=== PATIENT | female | born 1980 | race Caucasian/White ===

== ENCOUNTER 2016-09-30 15:15 | Observation (INO) | payer MEDICAID, SELFPAY ==
[2016-09-30 15:25] VITALS: BMI 36.0
--- NOTE | 2016-09-30 15:40 | PCM.HP.STD ---
Problem List (1) Opioid withdrawal Status: Acute (2) Depression Status: Chronic Qualifiers: Depression Type: D Major depression recurrence: M Active/Remission status: A Major depression episode severity: M Psychotic features: P Trimester: T (3) Tobacco abuse Status: Chronic (4) Tachycardia Status: Chronic (5) Asthma Status: Chronic Qualifiers: Asthma severity: A Asthma complication type: A (6) Irritable bowel syndrome Status: Chronic Qualifiers: Irritable bowel syndrome type: I History of Present Illness Date of Admission: 09/30/16 Chief Complaint: Sweating, diarrhea, body aches, opioid withdrawal for medical stabilization with [facility] service. The patient is a 36 year old F with past medical history as mentioned above including history of drug abuse presented to the [facility] service for symptoms of sweating, diarrhea and generalized body aches and pains. Her symptoms started early this morning with generalized body aches and pains, arthralgias, myalgias, dull aching pains, not radiating, 3-4 out of 10 in severity, associated with sweating and diarrhea as well as nausea and vomiting and without aggravating or relieving factors. She had a history of drug abuse and she used IV cocaine and heroin yesterday at 4 PM. At this time, she is experiencing significant withdrawal symptoms. Vital signs are stable. Patient was directly admitted to the floor, no blood work available. She is being admitted for medical stabilization from opioid withdrawal through [facility] service. Past Medical History Past Medical History (Chronic Problems): Chronic Problems Asthma (Chronic) Depression (Chronic) Irritable bowel syndrome (Chronic) Tachycardia (Chronic) Tobacco abuse (Chronic) Home Medications: Ambulatory Orders Medication Instructions Recorded Albuterol Inhaler [Ventolin Hfa] 2 puff PO PRN PRN 09/30/16 Atenolol [Tenormin] 100 mg PO DAILY 09/30/16 Buspirone HCl [Buspar] 15 mg PO 4X/DAY 09/30/16 Dicyclomine HCl [Bentyl] 10 mg PO TID 09/30/16 Gabapentin [Neurontin] 600 mg PO TIDCM 09/30/16 Meloxicam [Mobic] 15 mg PO DAILY 09/30/16 Oxybutynin Chloride [Ditropan Xl] 15 mg PO DAILY 09/30/16 Trazodone HCl 150 mg PO 09/30/16 Surgical History: appendectomy, cholecystectomy, tonsillectomy Psychiatric History: 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 Lives: With Family Smoking Status: Current every day smoker Alcohol: None Drugs: Cocaine, Heroin - *Family History Maternal History Items: No pertinent history Paternal History Items: Diabetes, Hypertension Review of Systems Constitutional: Denies: Anorexia, Chills, Fever, Weakness Eyes: Denies: Blurred vision, Double vision, Drainage, Redness HEENT: Denies: Difficulty Hearing, Ear Pain, Eye Pain, Nasal Congestion, Sore Throat Cardiovascular: Denies: Chest Pain, Chest Pressure, Edema, Heaviness, Palpitations, Syncope Respiratory: Denies: Cough, Pleuritic Pain, Shortness of Breath, Sputum production, Wheezing Gastrointestinal: Reports: Abdominal Pain, Diarrhea, Nausea, Vomiting. Denies: Constipation, Hematochezia, Melena Genitourinary: Denies: Dysuria, Frequency, Hematuria Musculoskeletal: Reports: Back Pain, Joint Pain, Leg Pain, Muscle pain Skin: Denies: Dryness, Rash Neurological: Reports: Headaches. Denies: Balance problems, Double vision, Change in Speech, Slurred speech, Confusion, Focal weakness, Incoordination, Numbness, Seizures Psychiatric: Reports: Depression. Denies: Anxiety Endocrine: Denies: Change in Body Habitus, Polydipsia VTE Information - Inpt Only VTE Present on Admission: No VTE Mechan Device Prophylaxis: None VTE Pharm Prophylaxis ordered?: No Patient Problems: Active and Suspected Problems Opioid withdrawal (Acute) - Physical Exam General: Alert, Oriented x3, Cooperative, - - She is sweaty, anxious. HEENT: Atraumatic, PERRLA, EOMI Oral: Moist Mucosa, No Gingival or Mucosal Lesions/ Ulcerations Neck: Supple, No JVD, Negative Carotid Bruits, Trachea Midline, Thyroid Normal Size and Texture Lungs: Clear to auscultation, Normal air movement, No rhonchi, No wheeze, No rales Cardiovascular: Regular rate, Regular Rhythm, Normal S1, Normal S2, PMI Normal, Tachycardic Abdomen: Bowel Sounds Present, Soft, Non Tender, Non-Distended, No Hepato-splenomegaly, Obese Extremities: No clubbing, No cyanosis, No edema Skin: No rashes, No breakdown Lymphatic: No Cervical, Supraclavicular, or Inguinal Adenopathy Neurological: Cranial nerves II-XII grossly intact, Motor Exam 5/5 strength throughout Psych/Mental Status: Normal Affect, Appropriate, Alert and oriented to time, place, person, mood and affect Assessment/Plan Active and Suspected Problems Opioid withdrawal (Acute) This is a 36 years old female patient admitted because of symptoms of generalized body aches, arthralgias, myalgias, diarrhea, sweating due to opioid withdrawal and last dose of cocaine and heroin was yesterday at 4 PM. #1 opioid withdrawal: At this time, vital signs are stable. Patient is sweaty, restless. [facility], cardiac monitoring, stat CBC, CMP, urinalysis, pro time and INR, test, urine drug screen, serum lipase and the malaise, IV fluids, IV antiemetics, start as needed medications as medical stabilization program by Sh[facility] Gonzalez, as needed Sinemet, Librium, Bentyl, Imodium, Seroquel, Vistaril and Tylenol, EKG, regular diet. #2 drug abuse: Patient uses heroin and cocaine, last dose was yesterday at 4 PM. She is experiencing significant withdrawal symptoms at this time. Plan as above for medical stabilization. #3 history of tachycardia: Unclear type of tachycardia, patient has been taking atenolol for low 12 years. At this time, heart rate is around 50s-60s. Blood pressure stable. Plan to continue atenolol. Monitor for bradycardia because she will be on atenolol as well as as needed clonidine for withdrawal symptoms. #4 depression: Hold trazodone for now, she would be on Seroquel. #5 irritable bowel syndrome: Postdilated because of withdrawal symptoms. Continue Bentyl and Librium #6 asthma: Patient is stable, maintaining O2 saturation normally on room air. Plan for albuterol as needed. #7 tobacco abuse: NicoDerm patch. #8 DVT prophylaxis: Low risk patient, no prophylaxis indicated. This note was generated with [employer] dictation software. It may contain incorrect words, spelling, and punctuation that were not noted in checking the note before signing.
--- NOTE | 2016-09-30 15:44 | HP.PCM_ITS ---
Problem List (1) Opioid withdrawal Status: Acute (2) Depression Status: Chronic Qualifiers: Depression Type: D Major depression recurrence: M Active/Remission status : A Major depression episode severity: M Psychotic features: P Trimester: T (3) Tobacco abuse Status: Chronic (4) Tachycardia Status: Chronic (5) Asthma Status: Chronic Qualifiers: Asthma severity: A Asthma complication type: A (6) Irritable bowel syndrome Status: Chronic Qualifiers: Irritable bowel syndrome type: I History of Present Illness Date of Admission: 09/30/16 Chief Complaint: Sweating, diarrhea, body aches, opioid withdrawal for medical stabilization with [facility] service. The patient is a 36 year old F with past medical history as mentioned above including history of drug abuse presented to the [facility] service for symptoms of sweating, diarrhea and generalized body aches and pains. Her symptoms started early this morning with generalized body aches and pains, arthralgias, myalgias, dull aching pains, not radiating, 3-4 out of 10 in severity, associated with sweating and diarrhea as well as nausea and vomiting and without aggravating or relieving factors. She had a history of drug abuse and she used IV cocaine and heroin yesterday at 4 PM. At this time, she is experiencing significant withdrawal symptoms. Vital signs are stable. Patient was directly admitted to the floor, no blood work available. She is being admitted for medical stabilization from opioid withdrawal through [facility] service. Past Medical History Past Medical History (Chronic Problems): Chronic Problems Asthma (Chronic) Depression (Chronic) Irritable bowel syndrome (Chronic) Tachycardia (Chronic) Tobacco abuse (Chronic) Home Medications: Ambulatory Orders Medication Instructions Recorded Albuterol Inhaler [Ventolin Hfa] 2 puff PO PRN PRN 09/30/16 Atenolol [Tenormin] 100 mg PO DAILY 09/30/16 Buspirone HCl [Buspar] 15 mg PO 4X/DAY 09/30/16 Dicyclomine HCl [Bentyl] 10 mg PO TID 09/30/16 Gabapentin [Neurontin] 600 mg PO TIDCM 09/30/16 Meloxicam [Mobic] 15 mg PO DAILY 09/30/16 Oxybutynin Chloride [Ditropan Xl] 15 mg PO DAILY 09/30/16 Trazodone HCl 150 mg PO 09/30/16 Surgical History: appendectomy, cholecystectomy, tonsillectomy Psychiatric History: Depression 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 Lives: With Family Smoking Status: Current every day smoker Alcohol: None Drugs: Cocaine, Heroin - *Family History Maternal History Items: No pertinent history Paternal History Items: Diabetes, Hypertension Review of Systems Constitutional: Denies: Anorexia, Chills, Fever, Weakness Eyes: Denies: Blurred vision, Double vision, Drainage, Redness HEENT: Denies: Difficulty Hearing, Ear Pain, Eye Pain, Nasal Congestion, Sore Throat Cardiovascular: Denies: Chest Pain, Chest Pressure, Edema, Heaviness, Palpitations, Syncope Respiratory: Denies: Cough, Pleuritic Pain, Shortness of Breath, Sputum production, Wheezing Gastrointestinal: Reports: Abdominal Pain, Diarrhea, Nausea, Vomiting. Denies: Constipation, Hematochezia, Melena Genitourinary: Denies: Dysuria, Frequency, Hematuria Musculoskeletal: Reports: Back Pain, Joint Pain, Leg Pain, Muscle pain Skin: Denies: Dryness, Rash Neurological: Reports: Headaches. Denies: Balance problems, Double vision, Change in Speech, Slurred speech, Confusion, Focal weakness, Incoordination, Numbness, Seizures Psychiatric: Reports: Depression. Denies: Anxiety Endocrine: Denies: Change in Body Habitus, Polydipsia VTE Information - Inpt Only VTE Present on Admission: No VTE Mechan Device Prophylaxis: None VTE Pharm Prophylaxis ordered?: No Patient Problems: Active and Suspected Problems Opioid withdrawal (Acute) - Physical Exam General: Alert, Oriented x3, Cooperative, - - She is sweaty, anxious. HEENT: Atraumatic, PERRLA, EOMI Oral: Moist Mucosa, No Gingival or Mucosal Lesions/ Ulcerations Neck: Supple, No JVD, Negative Carotid Bruits, Trachea Midline, Thyroid Normal Size and Texture Lungs: Clear to auscultation, Normal air movement, No rhonchi, No wheeze, No rales Cardiovascular: Regular rate, Regular Rhythm, Normal S1, Normal S2, PMI Normal, Tachycardic Abdomen: Bowel Sounds Present, Soft, Non Tender, Non-Distended, No Hepato- splenomegaly, Obese Extremities: No clubbing, No cyanosis, No edema Skin: No rashes, No breakdown Lymphatic: No Cervical, Supraclavicular, or Inguinal Adenopathy Neurological: Cranial nerves II-XII grossly intact, Motor Exam 5/5 strength throughout Psych/Mental Status: Normal Affect, Appropriate, Alert and oriented to time, place, person, mood and affect Assessment/Plan Active and Suspected Problems Opioid withdrawal (Acute) This is a 36 years old female patient admitted because of symptoms of generalized body aches, arthralgias, myalgias, diarrhea, sweating due to opioid withdrawal and last dose of cocaine and heroin was yesterday at 4 PM. #1 opioid withdrawal: At this time, vital signs are stable. Patient is sweaty, restless. [facility], cardiac monitoring, stat CBC, CMP, urinalysis, pro time and INR, test, urine drug screen, serum lipase and the malaise, IV fluids, IV antiemetics, start as needed medications as medical stabilization program by Sh[facility] Gonzalez, as needed Sinemet, Librium, Bentyl , Imodium, Seroquel, Vistaril and Tylenol, EKG, regular diet. #2 drug abuse: Patient uses heroin and cocaine, last dose was yesterday at 4 PM. She is experiencing significant withdrawal symptoms at this time. Plan as above for medical stabilization. #3 history of tachycardia: Unclear type of tachycardia, patient has been taking atenolol for low 12 years. At this time, heart rate is around 50s-60s. Blood pressure stable. Plan to continue atenolol. Monitor for bradycardia because she will be on atenolol as well as as needed clonidine for withdrawal symptoms. #4 depression: Hold trazodone for now, she would be on Seroquel. #5 irritable bowel syndrome: Postdilated because of withdrawal symptoms. Continue Bentyl and Librium #6 asthma: Patient is stable, maintaining O2 saturation normally on room air. Plan for albuterol as needed. #7 tobacco abuse: NicoDerm patch. #8 DVT prophylaxis: Low risk patient, no prophylaxis indicated. This note was generated with [employer] dictation software. It may contain incorrect words, spelling, and punctuation that were not noted in checking the note before signing.
--- NOTE | 2016-09-30 15:47 | EKG12_ITS ---
Test Reason : Blood Pressure : / mmHG Vent. Rate : 049 BPM Atrial Rate : 049 BPM P-R Int : 126 ms QRS Dur : 078 ms QT Int : 426 ms P-R-T Axes : 043 078 055 degrees QTc Int : 384 ms Marked sinus bradycardia with sinus arrhythmia Abnormal ECG No previous ECGs available Confirmed by JACINTO BARRERA ([id number]), senior technical editor CONRAD FLAHERTY ([id number] on 10/10/2016 3:24:24 PM Referred By: GEOVANNA Confirmed By:JACINTO BARRERA
[2016-09-30 15:51] VITALS: BP 112/55; PULSE 57; RESP 18; TEMP 37; O2SAT 97
[2016-09-30 15:54] VITALS: BP 112/55; PULSE 57; RESP 18; TEMP 37
[2016-09-30] MEDS: Buprenorphine HCl 2 MG TAB.SUBL SL (16:42)
[2016-09-30] MEDS: Carbidopa/Levodopa 25/100 Tablet PO (16:42)
[2016-09-30 16:58] LABS: Absolute Lymphocyte Count 1.48 X10^3/ul (0.83-4.51); Absolute Neutrophil Count 4.6 X10^3/uL (2.0-7.7); Basophil# 0.01 X10^3/uL; Basophil% 0.2 % (0-1); Eosinophil# 0.09 X10^3/uL; Eosinophils% 1.4 % (0-5); Hemoglobin 12.9 g/dl (12.0-15.0); Lymphocyte # 1.48 X10^3/ul (4.0); Lymphocyte % 22.7 % (19-41); Mean Corp Hgb Conc 31.5 g/gl (32-36); Mean Corpuscular Hgb 27.4 pg (27.0-32.0); Mean Corpuscular Volume 87.2 fL (81-99); Mean Platelet Vol. 11.6 fl (6.2-12.0); Monocyte# 0.34 X10^3/uL; Monocyte% 5.2 % (0-10); Neutrophil # 4.59 X10^3/uL (2.7-7.7); Neutrophil % 70.2 % (47-70); RBC Distribution Width CV 14.4 % (11.6-14.6); RBC Distribution Width SD 46.3 fl (35.1-43.9); White Blood Count 6.5 K/mm3 (4.4-11.0)
[2016-09-30 17:03] LABS: Prothrombin Time (Protime)PT. 12.4 SECONDS (11.7-14.9)
[2016-09-30 17:23] LABS: AST(SGOT) 35 U/L (15-37); Alanine Aminotransfer ALT/SGPT 56 U/L (12-78); Alcohol, Blood (Medical)-Serum < 3.0 mg/dL; Alkaline Phosphatase 111 U/L (45-117); Amylase 41 U/L (25-115); Anion Gap 8 (5-15); BUN 11 mg/dL (7-18); BUN/Creat Ratio 12.2 RATIO (10-20); Calcium,Total 9.2 mg/dL (8.5-10.1); Chloride 106 mmol/L (98-107); EST Glomerular Filtration Rate 74 mL/min (>60); Est Glom Filt Rate - Afr Amer 89 mL/min (>60); Estimated Creatinine Clearance 82.42 ml/min; Glucose 104 mg/dL (70-110); Lipase 212 U/L (73-393); Potassium 4.5 mmol/L (3.5-5.1); Sodium Level 142 mmol/L (136-145)
[2016-09-30 17:33] LABS: Differential Indicated SCAN CRITERIA MET; POSITIVE COUNT YES; POSITIVE DIFFERENTIAL NO; POSITIVE MORPHOLOGY NO; Platelet Count 200 K/mm3 (150-450)
[2016-09-30 17:34] LABS: Pregnancy, Serum, hCG Quali. NEGATIVE Negative (0-9 Nonpreg)
[2016-09-30 17:35] LABS: Red Cell Morphology NORM C+C NORMAL (NORM C&C)
[2016-09-30] MEDS: Gabapentin 600 MG Tablet PO (17:39)
[2016-09-30 17:40] LABS: Amphetamine Urine VISTA NEGATIVE (<1000 ng/mL); Barbiturate Urine VISTA NEGATIVE (< 200 ng/mL); Benzodiazepine Urine VISTA NEGATIVE (< 200 ng/mL); Cocaine Urine VISTA POSITIVE (< 300 ng/mL); Ecstacy Urine VISTA NEGATIVE (< 500 ng/mL); Methadone Urine VISTA NEGATIVE (< 300 ng/mL); PCP Urine VISTA NEGATIVE (< 25 ng/mL); THC Urine VISTA NEGATIVE (< 50 ng/mL); Vista UDS pH Range 8
[2016-09-30 19:59] VITALS: BP 124/93; PULSE 86; RESP 20; TEMP 36.8
[2016-09-30] MEDS: Ondansetron ODT 4 MG Tablet PO (20:20)
[2016-09-30 21:44] LABS: Bacteria 0 SEEN /hpf (None Seen); Mucous, Urine 0 SEEN /hpf (<or=2+); Red Blood Cells-Urine 0 SEEN /hpf (0-5); White Blood Cells 0 SEEN /hpf (0-5)
[2016-09-30 21:46] LABS: Color, Urine Straw (Yellow); Glucose, Dipstick Normal (Normal); Ketone-Dipstick Negative (Negative); Leukocyte Esterase-Dipstick Negative /ul (Negative); Nitrite-Dipstick Negative (Negative); Occult Blood-Urine Negative /ul (Negative); Protein-Dipstick Negative (Negative); Urine Bilirubin Dipstick Negative (Negative); Urine Clarity Clear (Clear); Urine Urobilinogen Normal (Normal)
[2016-09-30 21:56] LABS: Squamous Epithelial Cells - UA 0-5 SEEN /hpf (5-10)
[2016-10-01] VITALS (10 sets, daily range): BP systolic 101–119; BP diastolic 54–69; PULSE 61–81; RESP 16–20; TEMP 36.4–37.1; O2SAT 95–99
[2016-10-01] MEDS: Buprenorphine HCl 2 MG TAB.SUBL SL ×3 (00:15→16:34)
--- NOTE | 2016-10-01 06:49 | NURSING ---
Last night at 1999 Patient stated I need these heart things off me they are driving me crazy they are sticky and I can not sleep or get comfortable at all I explained to the patient the importance of the tele monitor and she said I will put it back on in the morning when I am awake I can't stand it on now So spoke with Dr. Myers and he was made aware. [id number] Patient was asked if we could put the tele monitor back on this morning and she said No not now I am still sleeping, maybe when I wake up.
[2016-10-01] MEDS: Gabapentin 600 MG Tablet PO ×3 (08:13→16:35)
[2016-10-01] MEDS: Tolterodine Tartrate 4 MG CAP.SA PO (08:14)
[2016-10-01] MEDS: Methocarbamol 750 MG Tablet PO (08:32)
--- NOTE | 2016-10-01 10:11 | PN_ITS ---
Patient Problems: Active and Suspected Problems Opioid withdrawal (Acute) Subjective: Chief complaint: Follow-up after admission for opioid withdrawal with for medical stabilization and detoxification. Patient seen and examined. No acute events overnight. She still complaining of generalized body aches and pains as well as sweating. Diarrhea improved, she still complaining of nausea without vomiting. Denied chest pain or shortness of breath. Vital signs are stable, she had bradycardia overnight because she has been on atenolol and added on clonidine as needed. Will - Physical Exam General: Alert, Oriented x3, Cooperative, No apparent distress HEENT: Atraumatic, PERRLA, EOMI Oral: Moist Mucosa, No Gingival or Mucosal Lesions/ Ulcerations Neck: Supple, No JVD, Negative Carotid Bruits, Thyroid Normal Size and Texture Lungs: Clear to auscultation, Normal air movement, No rhonchi, No wheeze, No rales Cardiovascular: Regular rate, Regular Rhythm, Normal S1, Normal S2, PMI Normal Abdomen: Bowel Sounds Present, Soft, Non Tender, Non-Distended, No Hepato- splenomegaly, Obese Extremities: No clubbing, No cyanosis, No edema Skin: No rashes, No breakdown Neurological: Neuro grossly intact Psych/Mental Status: Normal Affect, Appropriate Vital Signs Temp Pulse Resp BP Pulse Ox 98.8 F 74 18 114/66 97 10/01/16 08:00 10/01/16 08:00 10/01/16 08:00 10/01/16 08:00 09/30/16 15:51 Oxygen Delivery Method Room Air Weight: 230 lb Body Mass Index (BMI) 36.0 Intake and Output for Last 24 Hours 09/29/16 09/30/16 10/01/16 23:59 23:59 23:59 Intake Total 240 840 Balance 240 840 Laboratory Tests Past 24 Hrs 09/30/16 09/30/16 09/30/16 16:25 16:25 16:25 WBC 6.5 RBC 4.70 Hgb 12.9 Hct 41.0 MCV 87.2 MCH 27.4 MCHC 31.5 L RDW 14.4 RDW Differential 46.3 H Plt Count 200 MPV 11.6 Immature Gran % (Auto) 0.300 Neut % (Auto) 70.2 H Lymph % (Auto) 22.7 [place] % (Auto) 5.2 Eos % (Auto) 1.4 Baso % (Auto) 0.2 Absolute Neuts (auto) 4.6 Absolute Lymphs (auto) 1.48 Total Counted Not Reportable Platelet Estimate ADEQUATE SEE PLT NOT RBC Morphology NORM C+C PT INR Sodium 142 Potassium 4.5 Chloride 106 Carbon Dioxide 28.0 Anion Gap 8 BUN 11 Creatinine 0.90 Estim Creat Clear Calc 82.42 Est GFR (MDRD) Af Amer 89 Est GFR (MDRD) Non-Af 74 BUN/Creatinine Ratio 12.2 Glucose 104 Calcium 9.2 Total Bilirubin 0.40 AST 35 ALT 56 Alkaline Phosphatase 111 Total Protein 8.0 Albumin 4.0 Globulin 4.0 H Albumin/Globulin Ratio 1.0 Amylase 41 Lipase 212 Serum , Qual Urine Color Urine Clarity Urine pH Ur Specific [place] Urine Protein Urine Glucose (UA) Urine Ketones Urine Occult Blood Urine Nitrite Urine Bilirubin Urine Urobilinogen Ur Leukocyte Esterase Urine RBC Urine WBC Ur Squamous Epith Cells Urine Bacteria Urine Mucus Urine Opiates Screen Urine Methadone Screen Ur Barbiturates Screen Ur Phencyclidine Scrn Ur Amphetamines Screen U Methamphetamin-MDMA U Benzodiazepines Scrn Urine Cocaine Screen U Cannabinoids Screen Ur Drug Screen Comment Ethyl Alcohol < 3.0 09/30/16 09/30/16 09/30/16 16:25 16:25 16:35 WBC RBC Hgb Hct MCV MCH MCHC RDW RDW Differential Plt Count MPV Immature Gran % (Auto) Neut % (Auto) Lymph % (Auto) [place] % (Auto) Eos % (Auto) Baso % (Auto) Absolute Neuts (auto) Absolute Lymphs (auto) Total Counted Platelet Estimate RBC Morphology PT 12.4 INR 1.0 Sodium Potassium Chloride Carbon Dioxide Anion Gap BUN Creatinine Estim Creat Clear Calc Est GFR (MDRD) Af Amer Est GFR (MDRD) Non-Af BUN/Creatinine Ratio Glucose Calcium Total Bilirubin AST ALT Alkaline Phosphatase Total Protein Albumin Globulin Albumin/Globulin Ratio Amylase Lipase Serum , Qual NEGATIVE Urine Color Urine Clarity Urine pH Ur Specific [place] Urine Protein Urine Glucose (UA) Urine Ketones Urine Occult Blood Urine Nitrite Urine Bilirubin Urine Urobilinogen Ur Leukocyte Esterase Urine RBC Urine WBC Ur Squamous Epith Cells Urine Bacteria Urine Mucus Urine Opiates Screen POSITIVE H Urine Methadone Screen NEGATIVE Ur Barbiturates Screen NEGATIVE Ur Phencyclidine Scrn NEGATIVE Ur Amphetamines Screen NEGATIVE U Methamphetamin-MDMA NEGATIVE U Benzodiazepines Scrn NEGATIVE Urine Cocaine Screen POSITIVE H U Cannabinoids Screen NEGATIVE Ur Drug Screen Comment Ethyl Alcohol 09/30/16 16:35 WBC RBC Hgb Hct MCV MCH MCHC RDW RDW Differential Plt Count MPV Immature Gran % (Auto) Neut % (Auto) Lymph % (Auto) [place] % (Auto) Eos % (Auto) Baso % (Auto) Absolute Neuts (auto) Absolute Lymphs (auto) Total Counted Platelet Estimate RBC Morphology PT INR Sodium Potassium Chloride Carbon Dioxide Anion Gap BUN Creatinine Estim Creat Clear Calc Est GFR (MDRD) Af Amer Est GFR (MDRD) Non-Af BUN/Creatinine Ratio Glucose Calcium Total Bilirubin AST ALT Alkaline Phosphatase Total Protein Albumin Globulin Albumin/Globulin Ratio Amylase Lipase Serum , Qual Urine Color Straw Urine Clarity Clear Urine pH 8.0 Ur Specific [place] 1.010 Urine Protein Negative Urine Glucose (UA) Normal Urine Ketones Negative Urine Occult Blood Negative Urine Nitrite Negative Urine Bilirubin Negative Urine Urobilinogen Normal Ur Leukocyte Esterase Negative Urine RBC 0 SEEN Urine WBC 0 SEEN Ur Squamous Epith Cells 0-5 SEEN Urine Bacteria 0 SEEN Urine Mucus 0 SEEN Urine Opiates Screen Urine Methadone Screen Ur Barbiturates Screen Ur Phencyclidine Scrn Ur Amphetamines Screen U Methamphetamin-MDMA U Benzodiazepines Scrn Urine Cocaine Screen U Cannabinoids Screen Ur Drug Screen Comment Ethyl Alcohol Assessment/Plan Active and Suspected Problems Opioid withdrawal (Acute) This is a 36 years old female patient admitted because of symptoms of generalized body aches, arthralgias, myalgias, diarrhea, sweating due to opioid withdrawal and last dose of cocaine and heroin was yesterday at 4 PM. #1 opioid withdrawal: She is on medical stabilization protocol as per [facility] service with buprenorphine, Librium, Sinemet, clonidine and Seroquel as needed. Her vital signs are stable except bradycardia. She still complaining of generalized body aches and pains, nausea without vomiting as well as sweating , diarrhea improved. Routine blood work was reviewed, unremarkable. LFT and lipase were normal. Serum test was negative. Urinalysis was negative. EKG revealed sinus bradycardia, otherwise normal. Urine drug screen was positive for opioids and cocaine. Blood alcohol level is less than 3. Plan : Continue same treatment. #2 drug abuse: Patient uses heroin and cocaine. Urine drug screen is positive for opioids and cocaine. She is on medical stabilization program as above. #3 history of tachycardia: She is on atenolol. Heart rate went down to high 40s -50s. She has been on clonidine as needed. Plan to DC Claritin because of bradycardia. #4 depression: Trazodone held, she is on Seroquel as needed. Plan to resume BuSpar. #5 irritable bowel syndrome: Postdilated because of withdrawal symptoms. Continue Bentyl and Librium #6 asthma: Patient is stable, maintaining O2 saturation normally on room air. Plan for albuterol as needed. #7 tobacco abuse: NicoDerm patch. #8 DVT prophylaxis: Low risk patient, no prophylaxis indicated. This note was generated with [employer] dictation software. It may contain incorrect words, spelling, and punctuation that were not noted in checking the note before signing.
[2016-10-01] MEDS: Carbidopa/Levodopa 25/100 Tablet PO ×2 (12:34→21:18)
[2016-10-01] MEDS: Acetaminophen 325 MG Tablet 650 MG PO (16:40)
[2016-10-01] MEDS: Dicyclomine 10 MG Capsule 20 MG PO (16:41)
[2016-10-01] MEDS: BUSPIRONE HCL 15 MG TABLET PO ×2 (19:07→21:18)
[2016-10-01] MEDS: Loperamide 2 MG Capsule PO (21:18)
[2016-10-02] VITALS (7 sets, daily range): BP systolic 92–140; BP diastolic 51–88; PULSE 69–128; RESP 16–18; TEMP 36.6–36.9; O2SAT 95–96
[2016-10-02] MEDS: Buprenorphine HCl 2 MG TAB.SUBL SL ×2 (01:24→09:18)
[2016-10-02] MEDS: BUSPIRONE HCL 15 MG TABLET PO ×2 (08:56→12:51)
[2016-10-02] MEDS: Gabapentin 600 MG Tablet PO ×2 (08:56→12:51)
[2016-10-02] MEDS: Tolterodine Tartrate 4 MG CAP.SA PO (08:57)
[2016-10-02] MEDS: Carbidopa/Levodopa 25/100 Tablet PO (09:07)
--- NOTE | 2016-10-02 09:35 | PCM.PROGNOTE ---
Patient Problems: Active and Suspected Problems Opioid withdrawal (Acute) Subjective: Chief complaint: Follow-up after admission for opioid withdrawal was for medical stabilization with [facility] service. Patient seen and examined. No acute events overnight. Today, she is feeling much better. She has no more sweating, but the aches or myalgias. Denies any more nausea vomiting. No more diarrhea. Vital signs are stable. - Physical Exam General: Alert, Oriented x3, Cooperative, No apparent distress HEENT: Atraumatic, PERRLA, EOMI Oral: Moist Mucosa, No Gingival or Mucosal Lesions/ Ulcerations Neck: Supple, No JVD, Negative Carotid Bruits, Trachea Midline, Thyroid Normal Size and Texture Lungs: Clear to auscultation, Normal air movement, No rhonchi, No wheeze, No rales Cardiovascular: Regular rate, Regular Rhythm, Normal S1, Normal S2, No murmurs Abdomen: Bowel Sounds Present, Soft, Non Tender, Non-Distended, No Hepato-splenomegaly, Obese Extremities: No clubbing, No cyanosis, No edema Skin: No rashes, No breakdown Neurological: Neuro grossly intact Psych/Mental Status: Normal Affect, Appropriate Vital Signs Temp Pulse Resp BP Pulse Ox 98.4 F 73 16 92/51 96 10/02/16 08:00 10/02/16 08:00 10/02/16 08:00 10/02/16 08:00 10/02/16 05:30 Oxygen Delivery Method Room Air Weight: 230 lb Body Mass Index (BMI) 36.0 Intake and Output for Last 24 Hours 09/30/16 10/01/16 10/03/16 23:59 23:59 00:59 Intake Total 240 1160 300 Balance 240 1160 300 Assessment/Plan Active and Suspected Problems Opioid withdrawal (Acute) This is a 36 years old female patient admitted because of symptoms of generalized body aches, arthralgias, myalgias, diarrhea, sweating due to opioid withdrawal and last dose of cocaine and heroin was yesterday at 4 PM. #1 opioid withdrawal: She is on medical stabilization protocol as per [facility] service with buprenorphine, Librium, Sinemet, clonidine and Seroquel as needed. Her vital signs are stable. Symptoms improved, no more nausea vomiting, no diarrhea, no sweating. Urine drug screen was positive for opioids and cocaine. Blood alcohol level is less than 3. Plan: Continue same treatment. #2 drug abuse: Patient uses heroin and cocaine. Urine drug screen is positive for opioids and cocaine. She is on medical stabilization program as above. #3 history of tachycardia: She is on atenolol. Heart rate stabilized. She is on atenolol as well as clonidine as needed as per protocol. Blood pressure stable. She has no symptoms. #4 depression: Trazodone held, she is on Seroquel as needed and BuSpar. #5 irritable bowel syndrome: Postdilated because of withdrawal symptoms. Continue Bentyl and Librium #6 asthma: Patient is stable, maintaining O2 saturation normally on room air. Plan for albuterol as needed. #7 tobacco abuse: NicoDerm patch. #8 DVT prophylaxis: Low risk patient, no prophylaxis indicated. This note was generated with [employer] dictation software. It may contain incorrect words, spelling, and punctuation that were not noted in checking the note before signing.
--- NOTE | 2016-10-02 09:38 | PN_ITS ---
Patient Problems: Active and Suspected Problems Opioid withdrawal (Acute) Subjective: Chief complaint: Follow-up after admission for opioid withdrawal was for medical stabilization with [facility] service. Patient seen and examined. No acute events overnight. Today, she is feeling much better. She has no more sweating, but the aches or myalgias. Denies any more nausea vomiting. No more diarrhea. Vital signs are stable. - Physical Exam General: Alert, Oriented x3, Cooperative, No apparent distress HEENT: Atraumatic, PERRLA, EOMI Oral: Moist Mucosa, No Gingival or Mucosal Lesions/ Ulcerations Neck: Supple, No JVD, Negative Carotid Bruits, Trachea Midline, Thyroid Normal Size and Texture Lungs: Clear to auscultation, Normal air movement, No rhonchi, No wheeze, No rales Cardiovascular: Regular rate, Regular Rhythm, Normal S1, Normal S2, No murmurs Abdomen: Bowel Sounds Present, Soft, Non Tender, Non-Distended, No Hepato- splenomegaly, Obese Extremities: No clubbing, No cyanosis, No edema Skin: No rashes, No breakdown Neurological: Neuro grossly intact Psych/Mental Status: Normal Affect, Appropriate Vital Signs Temp Pulse Resp BP Pulse Ox 98.4 F 73 16 92/51 96 10/02/16 08:00 10/02/16 08:00 10/02/16 08:00 10/02/16 08:00 10/02/16 05:30 Oxygen Delivery Method Room Air Weight: 230 lb Body Mass Index (BMI) 36.0 Intake and Output for Last 24 Hours 09/30/16 10/01/16 10/03/16 23:59 23:59 00:59 Intake Total 240 1160 300 Balance 240 1160 300 Assessment/Plan Active and Suspected Problems Opioid withdrawal (Acute) This is a 36 years old female patient admitted because of symptoms of generalized body aches, arthralgias, myalgias, diarrhea, sweating due to opioid withdrawal and last dose of cocaine and heroin was yesterday at 4 PM. #1 opioid withdrawal: She is on medical stabilization protocol as per [facility] service with buprenorphine, Librium, Sinemet, clonidine and Seroquel as needed. Her vital signs are stable. Symptoms improved, no more nausea vomiting , no diarrhea, no sweating. Urine drug screen was positive for opioids and cocaine. Blood alcohol level is less than 3. Plan: Continue same treatment. #2 drug abuse: Patient uses heroin and cocaine. Urine drug screen is positive for opioids and cocaine. She is on medical stabilization program as above. #3 history of tachycardia: She is on atenolol. Heart rate stabilized. She is on atenolol as well as clonidine as needed as per protocol. Blood pressure stable. She has no symptoms. #4 depression: Trazodone held, she is on Seroquel as needed and BuSpar. #5 irritable bowel syndrome: Postdilated because of withdrawal symptoms. Continue Bentyl and Librium #6 asthma: Patient is stable, maintaining O2 saturation normally on room air. Plan for albuterol as needed. #7 tobacco abuse: NicoDerm patch. #8 DVT prophylaxis: Low risk patient, no prophylaxis indicated. This note was generated with [employer] dictation software. It may contain incorrect words, spelling, and punctuation that were not noted in checking the note before signing.
[2016-10-02] MEDS: Loperamide 2 MG Capsule PO (12:58)
[2016-10-02] MEDS: Dicyclomine 10 MG Capsule 20 MG PO (12:58)
--- NOTE | 2016-10-03 11:48 | PCM.DC.SUM ---
Discharge Date and Diagnosis Date of Admission: 09/30/16 Date of Discharge: 10/02/16 - Primary Discharge Diagnosis Opioid withdrawal admitted for medical stabilization with [facility] service, left the hospital AGAINST MEDICAL ADVICE. - Secondary Discharge Diagnosis Chronic Problems Asthma (Chronic) Depression (Chronic) Irritable bowel syndrome (Chronic) Tachycardia (Chronic) Tobacco abuse (Chronic) Hospital Course and Treatment Operations: None Procedures: EKG Summary of Care Provided: The patient is a 36 year old F admitted because of symptoms of myalgias, arthralgias, nausea, vomiting, diarrhea, restless and anxiety 1 day after last dose of IV cocaine and heroin the day before admission. [facility], routine blood work done as well as routine EKG, started on medical stabilization protocol as per [facility] service protocol with tapering dose of buprenorphine, as needed clonidine, Sinemet, Librium, IV fluids and antiemetics. Her routine blood work was unremarkable and normal. Her EKG showed sinus bradycardia, otherwise normal. Her vital signs remained stable throughout admission. With treatment, patient symptoms improved and she did very well. On Sunday, October 02, 2016, patient left AGAINST MEDICAL ADVICE. Just signed the AGAINST MEDICAL ADVICE paperwork and she left. Home Medications: Medications to take at Discharge Albuterol Inhaler [Ventolin Hfa] 2 puff PO PRN PRN 09/30/16 Atenolol [Tenormin] 100 mg PO DAILY 09/30/16 Buspirone HCl [Buspar] 15 mg PO 4X/DAY 09/30/16 Dicyclomine HCl [Bentyl] 10 mg PO TID 09/30/16 Gabapentin [Neurontin] 600 mg PO TIDCM 09/30/16 Meloxicam [Mobic] 15 mg PO DAILY 09/30/16 Oxybutynin Chloride [Ditropan Xl] 15 mg PO DAILY 09/30/16 Trazodone HCl 150 mg PO 09/30/16 Primary Care Physician: Care Physician,No Primary [Primary Care Provider] - Disposition: Against Medical Advice Minutes spent on discharge:: 18 Patient Condition:: Good Meaningful Use Info Meaningful Use Diagnoses (Choose all that apply): None applicable
--- NOTE | 2016-10-03 11:53 | DS.PCM_ITS ---
Discharge Date and Diagnosis Date of Admission: 09/30/16 Date of Discharge: 10/02/16 - Primary Discharge Diagnosis Opioid withdrawal admitted for medical stabilization with [facility] service, left the hospital AGAINST MEDICAL ADVICE. - Secondary Discharge Diagnosis Chronic Problems Asthma (Chronic) Depression (Chronic) Irritable bowel syndrome (Chronic) Tachycardia (Chronic) Tobacco abuse (Chronic) Hospital Course and Treatment Operations: None Procedures: EKG Summary of Care Provided: The patient is a 36 year old F admitted because of symptoms of myalgias, arthralgias, nausea, vomiting, diarrhea, restless and anxiety 1 day after last dose of IV cocaine and heroin the day before admission. [facility], routine blood work done as well as routine EKG, started on medical stabilization protocol as per [facility] service protocol with tapering dose of buprenorphine, as needed clonidine, Sinemet, Librium, IV fluids and antiemetics. Her routine blood work was unremarkable and normal. Her EKG showed sinus bradycardia, otherwise normal. Her vital signs remained stable throughout admission. With treatment, patient symptoms improved and she did very well. On Sunday, October 02, 2016, patient left AGAINST MEDICAL ADVICE. Just signed the AGAINST MEDICAL ADVICE paperwork and she left. Home Medications: Medications to take at Discharge Albuterol Inhaler [Ventolin Hfa] 2 puff PO PRN PRN 09/30/16 Atenolol [Tenormin] 100 mg PO DAILY 09/30/16 Buspirone HCl [Buspar] 15 mg PO 4X/DAY 09/30/16 Dicyclomine HCl [Bentyl] 10 mg PO TID 09/30/16 Gabapentin [Neurontin] 600 mg PO TIDCM 09/30/16 Meloxicam [Mobic] 15 mg PO DAILY 09/30/16 Oxybutynin Chloride [Ditropan Xl] 15 mg PO DAILY 09/30/16 Trazodone HCl 150 mg PO 09/30/16 Primary Care Physician: Care Physician,No Primary [Primary Care Provider] - Disposition: Against Medical Advice Minutes spent on discharge:: 18 Patient Condition:: Good Meaningful Use Info Meaningful Use Diagnoses (Choose all that apply): None applicable
== END 2016-10-02 18:15 | disposition left against medical advice (07) | DRG 773 ==
LOC: MS2 04-16 15:31
PROVIDERS: Admitting Provider Hospitalist; Visit Provider Hospitalist
DX: F11.23 Opioid dependence with withdrawal (principal); K58.9 Irritable bowel syndrome, unspecified; F32.9 Major depressive disorder, single episode, unspecified; J45.909 Unspecified asthma, uncomplicated; R11.2 Nausea with vomiting, unspecified; M79.1 Myalgia; M25.50 Pain in unspecified joint; Z79.899 Other long term (current) drug therapy; F17.200 Nicotine dependence, unspecified, uncomplicated
CPT/HCPCS: 36415; 80053; 80307; 80320; 81001; 82150; 83690; 84703; 85025; 85610; 93005; 99218; G0378; G0379; G0480